=== PATIENT | male | born 1950 | race Caucasian/White ===

== ENCOUNTER 2017-09-22 11:26 | Emergency (ER) | payer OTHER ==
[2017-09-22] MEDS: DEXAMETHASONE 10 MG/ML 1 ML INJ IM (13:20)
== END 2017-09-22 13:56 | disposition home or self-care (01) ==
LOC: E/R 11:26 → FTE 13:56
DX: R21 Rash and other nonspecific skin eruption (principal); E11.9 Type 2 diabetes mellitus without complications
CPT/HCPCS: 96372; 99284-25

== ENCOUNTER 2017-09-30 17:56 | Emergency (ER) | payer OTHER | END 2017-09-30 20:26 | disposition home or self-care (01) | LOC: E/R 20:26 → FTE 17:56 | DX: R21 Rash and other nonspecific skin eruption (principal); E11.9 Type 2 diabetes mellitus without complications | CPT/HCPCS: 99284 ==

== ENCOUNTER 2017-10-02 18:30 | Emergency (ER) | payer OTHER ==
[2017-10-02] MEDS: CEFTRIAXONE 250 MG INJ IM (21:35)
[2017-10-02] MEDS ORDERED: LIDOCAINE 1% (MDV) 20 ML INJ (21:36)
== END 2017-10-02 22:10 | disposition home or self-care (01) ==
LOC: FTE 18:30
DX: L53.9 Erythematous condition, unspecified (principal); E11.9 Type 2 diabetes mellitus without complications; F17.210 Nicotine dependence, cigarettes, uncomplicated
CPT/HCPCS: 87591; 96372; 99284-25